=== PATIENT | female | born 1995 | race Caucasian/White ===

== ENCOUNTER 2022-10-03 19:57 | Emergency (ER) | payer MEDICAID, SELFPAY ==
[2022-10-03 19:59] VITALS: BP 125/66; PULSE 79; RESP 20; TEMP 36.6; O2SAT 100; BMI 26.9
[2022-10-03 20:05] VITALS: O2SAT 100
--- NOTE | 2022-10-03 20:11 | RAD_ITS ---
STUDY: X-RAY - RIGHT SHOULDER REASON FOR EXAM: Female, 27 years old. Trauma TECHNIQUE: 4 view(s) of the shoulder. COMPARISON: None. FINDINGS: Normal glenohumeral articulation. Normal acromioclavicular joint. Normal acromion. Normal humeral head and visualized proximal humerus. The soft tissue structures are unremarkable. There is no demonstrated fracture. Normal visualized pulmonary apex. RAD/Shoulder min 2 Views IMPRESSION: Normal x-ray examination of the shoulder. Electronically Signed: Seven Zaragoza MD at 21:25 EDT ,
--- NOTE | 2022-10-03 20:11 | CT_ITS ---
STUDY: CT BRAIN WITHOUT CONTRAST REASON FOR EXAM: Female, 27 years old. Trauma RADIATION DOSAGE (If Supplied By Facility): CTDIvol = ( 44.99 ) mGy, DLP = ( 812.98 ) mGycm TECHNIQUE: Transaxial CT imaging of the brain was performed without administration of intravenous contrast material. Individualized dose optimization techniques were used for this CT. COMPARISON: No relevant priors. FINDINGS: Normal soft tissue structures. Normal calvarium. Normal size ventricles and extra-axial spaces for the patient''s age. Normal white matter tracts of the cerebral hemispheres. Normal basal ganglia and thalami. Normal brainstem. Normal cerebellum. There is no intracranial hemorrhage. There are no findings of an acute ischemic infarction. Normal visualized paranasal sinuses. CT/Brain/Head without Contrast IMPRESSION: Normal unenhanced CT scan of the brain. Electronically Signed: Seven Zaragoza MD at 21:11 EDT ,
--- NOTE | 2022-10-03 20:11 | RAD_ITS ---
STUDY: X-RAY - PELVIS REASON FOR EXAM: Female, 27 years old. Trauma TECHNIQUE: One view of the pelvis was obtained. COMPARISON: None. FINDINGS: Limited by extensive overlying artifact. Normal bilateral iliac wings, sacroiliac joints and visualized sacrum. Normal visualized bilateral superior and inferior pubic rami. Normal pubic symphysis. Normal ischial tuberosities. Normal visualized right femoral head. Normal right acetabulum. Normal right hip joint. Normal visualized left femoral head. Normal left acetabulum. Normal left hip joint. RAD/Pelvis 1 or 2 Views IMPRESSION: Normal x-ray examination of the pelvis. Electronically Signed: Seven Zaragoza MD at 21:24 EDT ,
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
--- NOTE | 2022-10-03 20:50 | RAD_ITS ---
STUDY: X-RAY CHEST REASON FOR EXAM: Female, 27 years old. Trauma TECHNIQUE: Single AP portable view of the chest. COMPARISON: None. FINDINGS: Limited by extensive artifact from spine board. The lungs are clear and expanded. There is no demonstrated pleural abnormality. Normal size heart. Normal mediastinum and kylie. Normal visualized pulmonary arteries. Normal visualized aortic arch and descending thoracic aorta. Normal visualized thoracic spine. Normal visualized ribs, clavicles, and shoulders. There is no demonstrated abnormality of the visualized soft tissue structures of the upper abdomen. RAD/Chest 1 View (Portable) IMPRESSION: Limited by artifact. No definite acute or significant abnormality seen. Electronically Signed: Seven Zaragoza MD at 21:23 EDT ,
== END 2022-10-03 22:59 | disposition home or self-care (01) ==
LOC: ED 22:33
PROVIDERS: Emergency Provider Emergency Medicine; Visit Provider Emergency Medicine
DX: S49.91XA Unspecified injury of right shoulder and upper arm, initial encounter (principal); S49.92XA Unspecified injury of left shoulder and upper arm, initial encounter; V49.40XA Driver injured in collision with unspecified motor vehicles in traffic accident, initial encounter
CPT/HCPCS: 70450; 71045; 72170; 73030; 99284

== ENCOUNTER 2023-03-22 14:45 | Emergency (ER) | payer MEDICAID, SELFPAY ==
[2023-03-22] VITALS (10 sets, daily range): BP systolic 124–131; BP diastolic 56–81; PULSE 75–99; RESP 14–20; TEMP 37.1; O2SAT 95–100; BMI 22.8
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
--- NOTE | 2023-03-22 15:21 | CT_ITS ---
EXAM: CT HEAD WITHOUT INTRAVENOUS CONTRAST CLINICAL INDICATION: altered mental status TECHNIQUE: Multiple axial images were obtained of the head without intravenous contrast. This CT exam was performed using one or more of the following dose reduction techniques: automated exposure control, adjustment of the mA and/or kV according to patient size, and/or use of iterative reconstruction technique. RADIATION DOSE: CTDIvol = 44.99 mGy, DLP = 779.24 mGy-cm COMPARISON: No relevant prior studies available. FINDINGS: BRAIN AND EXTRA-AXIAL SPACES: Unremarkable. No intra- or extra-axial hemorrhage. No evidence of acute infarct. No intracranial mass or mass effect. There is preservation of the mccartney/white matter interface. Posterior fossa structures are unremarkable. Ventricles are appropriate for age. No hydrocephalus. Basal cisterns are patent. BONES/JOINTS: Unremarkable. No discrete lytic or blastic abnormalities. SINUSES: Unremarkable as visualized. Clear. MASTOID AIR CELLS: Unremarkable. Clear. ORBITS: Visualized globes, extraocular muscles, optic nerves and retrobulbar fat appear unremarkable. CT/Brain/Head without Contrast IMPRESSION: Negative head/brain CT without intravenous contrast. Electronically Signed: Claudio Golden MD at 16:41 EST ,
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
--- NOTE | 2023-03-22 15:22 | EKG12_ITS ---
Test Reason : MENTAL HEALTH Blood Pressure : / mmHG Vent. Rate : 077 BPM Atrial Rate : 077 BPM P-R Int : 120 ms QRS Dur : 074 ms QT Int : 376 ms P-R-T Axes : 002 042 032 degrees QTc Int : 425 ms Normal sinus rhythm Normal ECG Confirmed by YARITZA NAM, JAYNE ([id number]), editorial project manager PACO REED ([id number]) on 03/24/2023 8:34:32 AM Referred By: JUDY Confirmed By:JAYNE VIGIL MD
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
--- NOTE | 2023-03-22 15:27 | ED.RN ---
NO OLD EKG
--- NOTE | 2023-03-22 15:29 | ED.RN ---
BILINGUAL CASE MANAGER NOTIFIED OF PT IN RESTRAINTS.
[2023-03-22 15:47] LABS: Bacteria 0 SEEN /hpf (None Seen); Mucous, Urine 0 SEEN /hpf (<or=2+); Red Blood Cells-Urine 0 SEEN /hpf (0-5); Squamous Epithelial Cells - UA 0 SEEN /hpf (5-10)
--- OUTSIDE RECORDS SUMMARY | 2023-03-22 15:48 | XMS RPT_ITS | CCD ---
Author Name Unknown Address [address] [place] [id number] Organization [facility] Care Team Providers Care Injection Molding Operator Name Role Phone JOHN BRUCE DO Admitting Unavailable JOHN BRUCE DO Attending Unavailable JOHN BRUCE DO Primary Care Unavailable JOHN BRUCE DO Attending Unavailable JOHN BRUCE DO Primary Care Unavailable JOHN BRUCE DO Admitting Unavailable Results Test Name Value Interpretation Reference Range Facil ity
[2023-03-22] MEDS: 0.9% Normal Saline (1000mL) 1,000 ML 1000 ML IV (15:54)
[2023-03-22 15:57] LABS: Glucose, Dipstick Normal (Normal); Ketone-Dipstick Negative (Negative); Leukocyte Esterase-Dipstick 25 /ul (Negative); Nitrite-Dipstick Negative (Negative); Occult Blood-Urine 10 /ul (Negative); Protein-Dipstick 15 mg/dl (Negative); Urine Bilirubin Dipstick Negative (Negative); Urine Urobilinogen Normal (Normal)
[2023-03-22 15:58] LABS: Color, Urine Straw (Yellow); International Normalized Ratio 1.1; Prothrombin Time (Protime)PT. 14.4 SECONDS (11.7-14.9)
[2023-03-22 15:59] LABS: Partial Thromboplast Time 24.4 Seconds (24.1-36.2); Urine Clarity Clear (Clear)
[2023-03-22 16:01] LABS: White Blood Cells 5-10 SEEN /hpf (0-5)
[2023-03-22 16:06] LABS: Absolute Lymphocyte Count 1.06 X10^3/uL (0.83-4.51); Absolute Neutrophil Count 17.4 X10^3/uL (2.0-7.7); Basophil# 0.07 X10^3/uL; Basophil% 0.4 % (0-1); Eosinophil# 0.01 X10^3/uL; Eosinophils% 0.1 % (0-5); Hematocrit 38.6 % (37-47); Hemoglobin 13.2 g/dL (12.0-15.0); Lymphocyte # 1.06 X10^3/ul (0.83-4.51); Lymphocyte % 5.3 % (19-41); Mean Corp Hgb Conc 34.2 g/dL (32-36); Mean Corpuscular Hgb 30.2 pg (27.0-32.0); Mean Corpuscular Volume 88.3 fL (81-99); Mean Platelet Vol. 9.6 fl (6.2-12.0); Monocyte# 1.36 X10^3/uL; Monocyte% 6.8 % (0-10); NRBC Flagged by Analyzer 0 % (0-5); Neutrophil # 17.37 X10^3/uL (2.7-7.7); Neutrophil % 86.8 % (47-70); Platelet Count 351 K/mm3 (150-450); RBC Distribution Width CV 12.3 % (11.6-14.6); RBC Distribution Width SD 39.8 fl (35.1-43.9); Red Blood Count 4.37 M/mm3 (4.2-5.4)
[2023-03-22 16:08] LABS: Amphetamine Urine VISTA NEGATIVE (<1000 ng/mL); Barbiturate Urine VISTA NEGATIVE (< 200 ng/mL); Benzodiazepine Urine VISTA NEGATIVE (< 200 ng/mL); Cocaine Urine VISTA NEGATIVE (< 300 ng/mL); Ecstacy Urine VISTA NEGATIVE (< 500 ng/mL); Internal QC Validated? YES +Cl - CLEAR BKGD; Methadone Urine VISTA NEGATIVE (< 300 ng/mL); PCP Urine VISTA NEGATIVE (< 25 ng/mL); Pregnancy, Serum, hCG Quali. NEGATIVE Negative; THC Urine VISTA POSITIVE (< 50 ng/mL); Vista UDS pH Range 7
[2023-03-22 16:11] LABS: Alcohol, Blood (Medical)-Serum < 3.0 mg/dL
[2023-03-22 16:18] LABS: Lactic Acid 1.9 mmol/L (0.4-1.9)
[2023-03-22 16:19] LABS: AST(SGOT) 29 U/L (15-37); Alanine Aminotransfer ALT/SGPT 25 U/L (13-56); Albumin, Serum 4.1 g/dL (3.2-5.0); Alkaline Phosphatase 57 U/L (45-117); Anion Gap 8 (5-15); BUN 15 mg/dL (7-18); BUN/Creat Ratio 14.9 RATIO (10-20); Bilirubin, Direct 0.23 mg/dL (0.00-0.30); CPK Total, Creatine Kinase 821 U/L (26-192); Chloride 107 mmol/L (98-107); Creatinine, Serum 1.01 mg/dL (0.55-1.02); EST Glomerular Filtration Rate 69 mL/min (>60); Est Glom Filt Rate - Afr Amer 84 mL/min (>60); Estimated Creatinine Clearance 74.62 ml/min; Globulin 3.8 g/dL (2.2-4.2); Glucose 78 mg/dL (74-106); Lipase 25 U/L (13-75); Potassium 3.4 mmol/L (3.5-5.1); Protein, Total 7.9 g/dL (6.4-8.2); Sodium Level 137 mmol/L (136-145); Troponin-I HS 22 pg/mL (3.0-54.0)
--- NOTE | 2023-03-22 16:24 | RAD_ITS ---
EXAM: XR CHEST, 1 VIEW CLINICAL INDICATION: altered mental status TECHNIQUE: Frontal view of the chest. COMPARISON: No relevant prior studies available. FINDINGS: LUNGS AND PLEURAL SPACES: Unremarkable. No consolidation or edema. No pneumothorax. No effusion. HEART: Unremarkable. Cardiac silhouette not enlarged. MEDIASTINUM: Central airways and mediastinal contour are unremarkable. BONES/JOINTS: Unremarkable. No acute fracture. SOFT TISSUES: Unremarkable. RAD/Chest 1 View (Portable) IMPRESSION: No radiographic evidence of acute cardiopulmonary disease. Electronically Signed: Claudio Golden MD at 16:46 EST ,
--- NOTE | 2023-03-22 20:15 | ED.RN ---
tipple worker at bedside for assessment for approx 40 minutes. Crisis states he can not assess patient due to her being too sleepy This RN questions crisis asking how awake does she need to be, she is walking around the room and has had to be redirected back to her room twice Crisis then states that she is not able to answer questions appropriately. He states he feels she needs observed for a few more hours and then will need assessed again. Dr Chilel notified.
[2023-03-23] VITALS (9 sets, daily range): BP systolic 107–115; BP diastolic 61–78; PULSE 65–82; RESP 14–18; O2SAT 98
--- NOTE | 2023-03-23 00:40 | ED.RN ---
We received crisis assessment via fax from the washtub worker who states he was unable to assess patient. Contacting crisis for clarification.
--- NOTE | 2023-03-23 04:04 | ED.RN ---
CALLED PHYSICIANS FOR AN UPDATE ON OUTSOURCING REQUEST, THEY SAID THEY TRIED DALJIT MENDEZ AND LINKS BOTH SAID THEY WERE UNAVAILABLE. PHYSICIANS SAID THEY COULDN'T AND DIDN'T TRY JOANN ARZOLA OR CHAS BECAUSE THEY DON'T TAKE PHYCH.
== END 2023-03-23 09:07 ==
PROVIDERS: Emergency Provider Emergency Medicine; Visit Provider Emergency Medicine
DX: R41.82 Altered mental status, unspecified (principal)
CPT/HCPCS: 70450; 71045; 72125; 80048; 80076; 80307; 80320; 81001; 82550; 83605; 83690; 84484; 84703; 85025; 85610; 85730; 93005; 96360; 99285; J7030; A4216; G0480